=== PATIENT | male | born 2000 | race Caucasian/White ===

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

== ENCOUNTER 2021-11-03 08:48 | Emergency (ER) | payer MEDICAID, SELFPAY ==
[2021-11-03 08:51] VITALS: BP 127/82; PULSE 79; RESP 16; TEMP 37.2; O2SAT 99
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
--- NOTE | 2021-11-03 09:39 | NUR.NOTE ---
Nursing Note: Abrasion to left outer ankle dressed with bacitracin, gauze, and tegaderm per providers verbal order.
[2021-11-03] MEDS: Bacitracin 1 PACKET (09:41)
== END 2021-11-03 10:00 | disposition home or self-care (01) ==
PROVIDERS: Emergency Provider Physician Assistant; PCP Pediatrics
DX: S90.02XA Contusion of left ankle, initial encounter (principal); F17.210 Nicotine dependence, cigarettes, uncomplicated; V23.4XXA Motorcycle driver injured in collision with car, pick-up truck or van in traffic accident, initial encounter
CPT/HCPCS: 99283; 73610; 99282

== ENCOUNTER 2022-09-24 16:05 | Emergency (ER) | payer MEDICAID, SELFPAY ==
[2022-09-24] VITALS (28 sets, daily range): BP systolic 101–120; BP diastolic 55–75; PULSE 89–90; RESP 16–42; TEMP 36.6; O2SAT 79–100
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
[2022-09-24] MEDS: fentaNYL 100 MCG/2 ML VIAL 75 MCG IVP (16:47)
[2022-09-24] MEDS: ceFAZolin 2 GM/50 ML BAG IVPB (16:50)
[2022-09-24] MEDS: Normal Saline 1,000 ML 1000 ML IV (16:50)
[2022-09-24 16:51] LABS: BE (Venous) -3 mmol/L (-2-3); HCO3 (Venous) 24 mmol/L (23-28); O2 Sat (Venous) 66 %; TCO2 (Venous) 22 mmol/L (24-29); pCO2 (Venous) 49 mmHg (41-51); pO2 (Venous) 37 mmHg
[2022-09-24 16:53] LABS: HCT 41.5 % (40.0-50.0); HGB 14.9 g/dL (13.5-17.5); MCH 30.8 pg (27.0-33.0); MCHC 35.9 % (32.0-36.0); MCV 86 fL (80-95); MPV 10.4 fL (8.0-11.0); Platelet Count 272 10^3/uL (130-400); RBC 4.83 10^6/uL (4.36-5.78); RDW 11.6 % (11.8-14.1); RDW-SD 36.8 fL
[2022-09-24] MEDS: Normal Saline Flush 10 ML SYR IVP (16:53)
[2022-09-24] MEDS: Normal Saline - Diluent 50 ML VIAL IJ (16:54)
[2022-09-24 17:03] LABS: INR 1.2 (0.9-1.1); Prothrombin Time 12.5 sec (9.3-11.0)
[2022-09-24 17:15] LABS: ALT 72 U/L (16-63); AST 75 U/L (15-37); Albumin 4.3 g/dL (3.4-5.0); Alkaline Phosphatase 101 U/L (46-116); BUN 12 mg/dL (7-18); CREATININE 1.2 mg/dL (0.70-1.30); Calcium 8.6 mg/dL (8.5-10.1); Chloride 101 mmol/L (98-107); Estimated GFR 88.24 (mL/min/1.73m2); Glucose 251 mg/dL (74-106); Lipase 121 U/L (16-77); Magnesium 1.8 mg/dL (1.8-2.4); Sodium 136 mmol/L (136-145); Total Protein 6.8 g/dL (6.4-8.2)
--- NOTE | 2022-09-24 17:15 | RT.EKG_ITS ---
APPROVED REPORT Exam: Resting ECG Reason for Exam: Hypokalemia Patient Location: E HR:95 bpm ECG Measurements Heart Rate 95 AXIS ME 125 P 77 QRSd 97 QRS -74 QT 333 T 59 QTc 419 Conclusion Sinus rhythm...normal P axis, V-rate 60- 99 Probable left atrial enlargement...P >50mS, <-0.10mV V1 Left anterior fascicular block...axis(240,-40), init forces inf ST elev, probable normal early repol pattern...ST elevation, age<55 Narrow complex normal sinus rhythm at a rate of 95. Intervals within normal limits. Left axis devia tion no signs of LVH based on voltage criteria in aVL. No acute ST segment abnormalities. T wave fl attening in aVL. No prior for comparison.
[2022-09-24 17:16] LABS: Absolute Neutrophil Count 24.92 10^3/uL (1.2-6.7); Bands % 7; ETHANOL BLOOD < 3.0 mg/dL (<10); Troponin I < 50 ng/L (<or=60)
[2022-09-24 17:17] LABS: Absolute Lymphocyte Count 3.08 10^3/uL (1.2-3.4); Absolute Monocyte Count 1.85 10^3/uL (0.1-0.8); Atypical Lymphocytes % 1; Metamyelocytes % 1; Myelocytes % 2
[2022-09-24 17:18] LABS: Potassium 2.8 mmol/L (3.5-5.1)
[2022-09-24 17:19] LABS: WBC 30.77 10^3/uL (4.4-10.8)
[2022-09-24 17:20] LABS: Diff Comment Manual Differential; RBC Morphology Normal
[2022-09-24] MEDS: HYDROmorphone 2 MG/ML SYR 0.5 MG IVP (17:54)
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
[2022-09-24] MEDS: POTASSIUM CHLORIDE/0.9% NACL 1,000 ML 1000 MEQ IV (18:09)
[2022-09-24] MEDS: Ketamine 500 MG/10 ML VIAL 20 MG IVP (18:11)
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
[2022-09-24 18:56] LABS: Lactate 3.1 mmol/L (0.6-1.4)
[2022-09-24] MEDS: AMPICILLIN/SULBACTAM 3 GM in Normal Saline 100 ML IVPB (18:56)
--- NOTE | 2022-09-24 18:57 | NUR.NOTE ---
pt splinted by MD White, assisted by OSBALDO Rodgers and OSBALDO Sanchez. pt has minimal sensation in bilateral lower extremities. able to move feet but has sensory deficits.
== END 2022-09-24 19:01 | disposition short-term general hospital (02) ==
PROVIDERS: Emergency Provider Emergency Medicine; PCP Pediatrics
DX: S82.202A Unspecified fracture of shaft of left tibia, initial encounter for closed fracture; S82.402A Unspecified fracture of shaft of left fibula, initial encounter for closed fracture; S32.401A Unspecified fracture of right acetabulum, initial encounter for closed fracture; S32.10XA Unspecified fracture of sacrum, initial encounter for closed fracture; S62.300B Unspecified fracture of second metacarpal bone, right hand, initial encounter for open fracture; S62.312A Displaced fracture of base of third metacarpal bone, right hand, initial encounter for closed fracture; S52.91XB Unspecified fracture of right forearm, initial encounter for open fracture type I or II; S52.201B Unspecified fracture of shaft of right ulna, initial encounter for open fracture type I or II; E87.6 Hypokalemia; E87.21 Acute metabolic acidosis; Z87.441 Personal history of nephrotic syndrome; V29.498A Other motorcycle driver injured in collision with other motor vehicles in traffic accident, initial encounter; S32.029A Unspecified fracture of second lumbar vertebra, initial encounter for closed fracture
CPT/HCPCS: 25565; 36415; 74177; 80053; 82805; 83690; 93005; 96365; 96366; 96372; 96375; 99291; 70450; 71260; 72125; 72128; 72131; 73090; 73120; 73590; 73620; 80320; 83605; 83735; 84484; 85025; 85610; 93010; J0295; J0690; J1170; J3010

== ENCOUNTER 2022-11-10 13:02 | Outpatient (REF) | payer MEDICAID, SELFPAY | END 2022-11-10 13:03 | disposition home or self-care (01) | LOC: LBN 13:02 | PROVIDERS: PCP Pediatrics; Visit Provider Urology | DX: R30.0 Dysuria (principal) | CPT/HCPCS: 87077; 87086; 87186 ==

== ENCOUNTER 2023-08-11 12:10 | Emergency (ER) | payer MEDICAID, SELFPAY ==
[2023-08-11 12:19] VITALS: BP 138/56; PULSE 79; RESP 16; TEMP 37.1; O2SAT 99
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
== END 2023-08-11 12:45 | disposition home or self-care (01) ==
LOC: ER 12:42
PROVIDERS: Emergency Provider Emergency Medicine; PCP Pediatrics
DX: M54.50 Low back pain, unspecified (principal); F17.210 Nicotine dependence, cigarettes, uncomplicated
CPT/HCPCS: 99283

== ENCOUNTER 2023-11-12 17:45 | Emergency (ER) | payer MEDICAID, SELFPAY ==
[2023-11-12 17:52] VITALS: BP 138/91; PULSE 95; RESP 16; TEMP 36.8; O2SAT 100
--- NOTE | 2023-11-12 18:12 | ED.GENADUL_ITS ---
Discharge Plan Disposition Patient Disposition: Home Condition: Stable Discharge Details Clinical Impression: Post-op pain Primary Care Provider: Pedro Pablo Dean ED Provider: Abel Betancourt Home Meds and New Rx's Prescriptions: Continued Tylenol Extra Strength 500 mg powder in packet 500 mg PO Q6H PRN gabapentin 300 mg capsule 300 mg PO TID Patient Comments: not taking regularly, taking as needed for nerve pain. Discharge Instructions Additional Instructions: Follow-up with your surgeons office tomorrow Return to the emergency department if you feel more ill or feel like you are suffering from an emergent medical process. HPI General Mode of arrival: ambulatory . Date/Time Provider Initiated Documentation: 11/12/23 17:48 . Limitations to Documentation: no limitations . Information obtained by: patient and family . History of Present Illness 23 year old M presents to the emergency department with the chief complaint of Postop pain, described as moderate, Quality is described as aching, and is localized to the back. Patient reports no radiation. Patient started ex periencing this day(s) (2) and it has been constant. No relieving factors improve symptom(s), No exacerbating factors reported . Patient notes no other symptoms.; denies fever/chills. Patient did receive the following treatments prior to arrival, none Related Data Home Medications ?Medication ?Instructions ?Recorded ?Confirmed acetaminophen 500 mg oral powder 500 mg PO Q6H PRN 11/01/22 11/12/23 packet (Tylenol Extra Strength) gabapentin 300 mg capsule 300 mg PO TID 11/01/22 11/12/23 Allergies Allergy/AdvReac Type Severity Reaction Status Date / Time No Known Allergies Allergy Verified 11/12/23 17:50 General Stated Complaint: Nk/Back Pain JAZIEL: 3 Review of Systems All systems reviewed & are unremarkable except as noted in HPI and below Constitutional Constitutional: Denies chills, Denies fever(s) and Denies weakness Cardiovascular Cardiovascular: Denies chest pain and Denies dyspnea Respiratory Respiratory: Denies cough and Denies dyspnea Gastrointestinal Gastrointestinal: Denies abdominal pain, Denies nausea and Denies vomiting Musculoskeletal Musculoskeletal: Denies joint swelling Neurologic Neurologic: Denies weakness Exam Const General: no acute distress Orientation: alert HENMT Head: normal to inspection Ears: external ears normal General nose exam: external nose normal Mouth: moist mucous membranes Eyes General: appearance normal, both eyes and all related structures Neck Neck: normal visual inspection Resp Effort & Inspection: normal respiratory effort and able to speak in complete sentences Cardio Rate: regular rate GI Palpation: soft and nontender Back/Spine/Pelvis Back: no CVA tenderness and No erythema Skin General skin exam: no rashes or lesions noted Neuro General: patient alert and patient oriented x3 Extrem General: normal to inspection Psych Mental Status: mental status grossly normal Course Vital Signs Vital signs: Vital Signs Temperature 36.8 C 11/12/23 17:52 Pulse 95 H 11/12/23 17:52 Respiratory Rate 16 11/12/23 17:52 Blood Pressure 138/91 H 11/12/23 17:52 Pulse Oximetry 100 11/12/23 17:52 Temperature 36.8 C 11/12/23 17:52 Temperature Source Temporal Artery Scan 11/12/23 17:52 Pulse 95 H 11/12/23 17:52 Respiratory Rate 16 11/12/23 17:52 Respiratory Effort Normal, Non-Labored 11/12/23 17:56 Blood Pressure 138/91 H 11/12/23 17:52 Blood Pressure Position Sitting 11/12/23 17:52 Pulse Oximetry 100 11/12/23 17:52 Oxygen Delivery Method Room Air 11/12/23 17:52 Oxygen Flow Rate 0 11/12/23 17:52 Pain Level 10 11/12/23 17:52 Medical Decision Making 23-year-old male who had hardware placed in his lumbar spine last year and removed 2 days ago at [facility], did not want stay overnight in the hospital and left without any prescription pain meds comes in with continued lower back pain. He called his neurosurgical office who advised him to come here until he can talk to him on the phone tomorrow. He has been taking Tylenol but no ibuprofen as they told him he should not be taking ibuprofen. He denies any fevers, chills, discharge from the surgical sites. Pain is on the lower lumbar region where he had his pain. Is no erythema or drainage, he has no saddle anesthesia and intact distal sensation and pulses. Suspect this is all postop pain he has no findings on exam to suggest cauda equina no fever so I doubt spinal epidural abscess. Discussed risk of opiates including addiction and he has been on opiates in the past without any issues and would like to have some. Will provide him a bottle of for oxycodone to take at home. He will follow-up with his neurosurgical provider and return precautions given Differential Diagnosis Differential Diagnosis: Muscle spasm, postop pain Quality:SDOH Health Related Social Needs: No Data to Display PFSH All Active Problems (Updated 11/12/23 @ 18:15 by Abel Betancourt MD) Post-op pain (Acute) Urinary retention (Acute) Traumatic burst fracture of lumbar vertebra (Acute) Fracture of left tibia and fibula (Acute) Acetabulum fracture, right (Acute) Sacral fracture, closed (Acute) Open fracture of second metacarpal bone of right hand (Acute) Fracture of base of third metacarpal bone of right hand (Acute) Open fracture of right radius and ulna (Acute) Jaundice (Acute) with scleral icterus- labs all wnl except slight high bilirubin- Probable Gilbert syndrome 01/07 Routine child health exam (Acute 11/07/11) Pes planus of both feet (Acute 10/21/15) No pain Medical History (Updated 11/12/23 @ 18:15 by Abel Betancourt MD) Pes planus Tonsillar and adenoid hypertrophy Serous otitis media Surgical History (Updated 11/06/22 @ 14:55 by Petr Gaona MD) Hx of decompressive lumbar laminectomy H/O exploratory laparotomy Tonsillectomy and adenoidectomy Myringotomy w/ PE (pressure equalizing) tubes times 2 Circumcision Family History Father Hearing deficit Sister Hearing deficit granparent Essential hypertension Heart disease Mental disorder depression/anxiety Mother Healthy adult on routine physical examination Social History Smoking/Tobacco Use Status: Current-Occasional Tobacco Type: cigarettes Smoking risk assessment performed?: Yes Alcohol Intake: current Alcohol Intake frequency: holidays/special occasions only Alcohol type: beer Drug use: Occasionally Substance use type: marijuana Housing: house Do you feel safe at home: Yes Do you feel safe in your relationship?: Yes
== END 2023-11-12 18:23 | disposition home or self-care (01) ==
LOC: ER 18:23
PROVIDERS: Emergency Provider Emergency Medicine; PCP Pediatrics
DX: M54.50 Low back pain, unspecified (principal); G89.18 Other acute postprocedural pain; F17.210 Nicotine dependence, cigarettes, uncomplicated
CPT/HCPCS: 99283

== ENCOUNTER 2024-06-04 14:53 | Emergency (ER) | payer MEDICAID, SELFPAY ==
[2024-06-04 15:09] VITALS: BP 122/70; PULSE 108; RESP 14; TEMP 37.4; O2SAT 99
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
[2024-06-04] MEDS: Ondansetron 4 MG/2 ML VIAL IVP (15:59)
[2024-06-04 16:02] VITALS: BP 104/64; PULSE 84; RESP 16; O2SAT 98
[2024-06-04 16:19] LABS: Abs Immature Grans 0.02 10^3/uL (0.0-0.06); Absolute Basophil Count 0.03 10^3/uL (0.0-0.2); Absolute Eosinophil Count 0.03 10^3/uL (0.0-0.7); Absolute Lymphocyte Count 1.03 10^3/uL (1.2-3.4); Absolute Monocyte Count 0.63 10^3/uL (0.1-0.8); Absolute Neutrophil Count 7.77 10^3/uL (1.2-6.7); Basophils % 0.3 %; Eosinophils % 0.3 %; HCT 47.4 % (40.0-50.0); HGB 17.3 g/dL (13.5-17.5); Immature Grans % 0.2 %; Lymphocytes % 10.8 %; MCH 30.5 pg (27.0-33.0); MCHC 36.5 % (32.0-36.0); MCV 84 fL (80-95); Monocytes % 6.6 %; Neutrophils % 81.8 %; Platelet Count 232 10^3/uL (130-400); RBC 5.67 10^6/uL (4.36-5.78); RDW 12.2 % (11.8-14.1); RDW-SD 36.7 fL; WBC 9.51 10^3/uL (4.4-10.8)
[2024-06-04 16:38] LABS: ALT 21 U/L (16-63); AST 11 U/L (15-37); Albumin 4.7 g/dL (3.4-5.0); Alkaline Phosphatase 87 U/L (46-116); Anion Gap 6.1 mmol/L (3-11); BUN 13 mg/dL (7-18); Bilirubin, Total 3.62 mg/dL (0.2-1.0); CO2 30.9 mmol/L (21.0-32.0); CREATININE 0.8 mg/dL (0.70-1.30); Calcium 9.5 mg/dL (8.5-10.1); Chloride 104 mmol/L (98-107); Estimated GFR 128.33 (mL/min/1.73m2); Glucose 111 mg/dL (74-106); Lipase 28 U/L (<78); Magnesium 1.9 mg/dL (1.8-2.4); Potassium 4.6 mmol/L (3.5-5.1); Sodium 141 mmol/L (136-145); Total Protein 7.7 g/dL (6.4-8.2)
[2024-06-04 16:39] LABS: Bilirubin Negative (Negative); Blood Negative (Negative); Clarity Clear (Clear); Glucose Negative (Negative); Ketones 80 mg/dL (Negative); Leukocyte Esterase Large (Negative); Nitrite Positive (Negative); Specific Gravity 1.015 (1.005-1.025); pH 8.5 (5-8)
[2024-06-04 16:46] LABS: Bacteria Rare HPF (Negative); C & S Indicated? Yes; Casts Negative LPF (Negative); Crystals Negative HPF (Negative); Epithelial Cells Negative HPF (Negative); Mucus Negative (Negative); Other Cells Negative (Negative); RBC Negative HPF (0-2)
[2024-06-04] MEDS: Cephalexin 500 MG CAP, 4 CAPS/BTL PO (17:03)
[2024-06-04] MEDS: Ondansetron O.D.T. 4 MG TABEF, 3 TABS/BTL PO (17:04)
[2024-06-04 17:05] VITALS: BP 102/66; PULSE 89; RESP 16
== END 2024-06-04 17:27 | disposition home or self-care (01) ==
PROVIDERS: Emergency Provider Emergency Medicine; PCP Pediatrics
DX: N39.0 Urinary tract infection, site not specified (principal); R82.2 Biliuria; R11.0 Nausea
CPT/HCPCS: 36415; 80053; 83690; 96374; 99284; 81003; 81015; 83735; 85025; 87086; J2405

== ENCOUNTER 2024-09-23 19:11 | Emergency (ER) | payer MEDICAID, SELFPAY ==
[2024-09-23 19:13] VITALS: BP 124/78; PULSE 94; RESP 19; TEMP 36.7; O2SAT 97
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
[2024-09-23 19:44] LABS: Clarity Cloudy (Clear)
--- NOTE | 2024-09-23 19:50 | DI.CT_ITS ---
Exam(s) CT ABDOMEN PELVIS WO EXAM: CT ABDOMEN PELVIS WO CLINICAL HISTORY: Hematuria. TECHNIQUE: Imaging Protocol: Axial computed tomography images with coronal and sagittal reformatted images were created and reviewed. COMPARISON: CT CT CHEST/ABD/PEL W from 09/24/2022 FINDINGS: There is artifact from the patient's posterior spinal rods. ABDOMEN: Lung Bases: No acute pulmonary process. Liver: Normal density. No measurable mass. Gallbladder and biliary tract: Gallstones are present. There is no significant biliary ductal dilata tion. Pancreas: Normal density, no abnormal calcifications or inflammatory process. Spleen: Normal. Kidneys: Normal size, contour and axis.No radiodense stones or obstructive uropathy. No masses seen. Adrenal glands: No mass is seen. Lymph nodes: Within normal limits. Abdominal Aorta: Abdominal portion non-dilated. PELVIS: Bladder:The urinary bladder is incompletely distended. There is apparent thickening of the wall of t he urinary bladder which may be due to the underdistention. There is a round density within the urin pascale bladder which is partially calcified. It measures 3.2 cm. Bowel: No obstruction or bowel wall thickening. No evidence of appendicitis. Peritoneal cavity: No ascites, collection or mesenteric inflammatory response. No free air. Reproductive organs: Unremarkable as visualized. Bones: Posterior spinal rods are seen extending from at least T11 through L3. Pedicle screws are see n in T11, T12, L1 and L3. There are old compression fracture deformities seen at L2 and within the sa osmany. Old healed right pelvic bone fractures. No acute fractures present. Soft Tissues: Within normal limits. IMPRESSION: 1. No evidence of nephrolithiasis or hydronephrosis. 2. Cholelithiasis. No biliary ductal dilatation. 3. Bladder wall thickening which may be due to underdistention cystitis cannot be excluded. Please c orrelate clinically. 4. 3.2 cm density in the urinary bladder. This may represent a bladder stone. Foreign body should a lso be considered. Please correlate the patient's clinical and surgical history. 5. The preliminary [facility] report was reviewed. RADIATION DOSE DELIVERED: 261.77mGy.cm Total DLP DATA REPOSITORY: All CT scans at this facility are submitted to the National Radiology Data Registry (NRDR) Dose Index Registry (DIR) with the [employer] (A[employer]). RADIATION OPTIMIZATION: All CT scans at this facility use at least one of these dose optimization te chniques: automated exposure control; mA and/or kV adjustment per patient size (includes targeted exa ms where dose is matched to clinical indication); or iterative reconstruction.
[2024-09-23 20:02] LABS: RBC >50 HPF (0-2)
[2024-09-23 20:03] LABS: C & S Indicated? No
--- NOTE | 2024-09-23 21:32 | DI.[facility]_ITS ---
PROCEDURE INFORMATION: Exam: CT Abdomen And Pelvis Without Contrast Exam date and time: 09/23/2024 7:40 PM Age: 24 years old Clinical indication: Hematuria; Prior surgery; Surgery date: 6+ months; Surgery type: Spine rods TECHNIQUE: Imaging protocol: Computed tomography of the abdomen and pelvis without contrast. Radiation optimization: All CT scans at this facility use at least one of these dose optimization techniques: automated exposure control; mA and/or kV adjustment per patient size (includes targeted exams where dose is matched to clinical indication); or iterative reconstruction. COMPARISON: CT CHEST/ABD/PEL W 09/24/2022 5:19 PM FINDINGS: Limitations: The lack of intravenous contrast limits evaluation of the solid organs. Liver: Unremarkable liver. No mass identified. Gallbladder and biliary ducts: Calcifications noted in the region of the gallbladder may represent layering gallstones. No ductal dilation. Pancreas: No pancreatic lesion seen. Spleen: The spleen is unremarkable. No splenomegaly. Adrenal glands: The adrenal glands are unremarkable. No defined mass. Kidneys and ureters: The kidneys are unremarkable. No hydronephrosis. Stomach and bowel: No evidence of bowel obstruction or acute bowel inflammation. Appendix: No evidence of appendicitis. Intraperitoneal space: No free air. No significant fluid collection. Vasculature: No abdominal aortic aneurysm. Lymph nodes: No significant lymphadenopathy. Urinary bladder: A round hyperdense object is noted within the urinary bladder measuring up to 2.7 cm in diameter, this could represent a developed calculus or a residual foreign body in this region. Thickened urinary bladder prado noted, which could be secondary to underdistention or chronic inflammation. Reproductive: Unremarkable as visualized. Bones/joints: The patient is status post posterior spinal fusion at the thoracolumbar level secondary to fracture. Multiple old sacral and pelvic fractures noted. Soft tissues: No significant subcutaneous soft tissue abnormality. IMPRESSION: 1. Round hyperdensity within the urinary bladder which may represent calcification or residual foreign body. Correlate with clinical history. An ultrasound may be considered for further evaluation. 2. Thickened bladder prado noted, which may be secondary to underdistention or chronic inflammation. Dictated and Authenticated by: Viktoria Smith MD. Orderin Fabiola Amaro MD
[2024-09-23 21:53] VITALS: BP 111/65; PULSE 69; RESP 18; TEMP 36.6; O2SAT 100
== END 2024-09-23 21:53 | disposition home or self-care (01) ==
PROVIDERS: Emergency Provider Registered Nurse Emergency; PCP Pediatrics
DX: N21.0 Calculus in bladder (principal); R31.9 Hematuria, unspecified; R11.0 Nausea
CPT/HCPCS: 99283; 99284; 74176; 81003; 81015

== ENCOUNTER 2024-09-24 15:24 | Outpatient (REF) | payer MEDICAID, SELFPAY | END 2024-09-24 15:25 | disposition home or self-care (01) | LOC: LBN 15:24 | PROVIDERS: PCP Pediatrics; Visit Provider Urology | DX: N21.0 Calculus in bladder (principal) | CPT/HCPCS: 87086 ==

== ENCOUNTER 2024-10-08 08:58 | Observation (INO) | payer MEDICAID, SELFPAY ==
[2024-10-08] VITALS (34 sets, daily range): BP systolic 108–138; BP diastolic 59–109; PULSE 60–99; RESP 12–27; TEMP 35.9–37.2; O2SAT 97–100; BMI 16.5
--- NOTE | 2024-10-08 09:16 | W.PM.HP.N ---
Date of service: 10/08/24 Time of Service: 09:16 Assessment and Plan Assessment and plan (1) Bladder calculi: Status: Acute Assessment and plan: For cystoscopy with holmium laser lithotripsy of his bladder stone. Depending on the progression of the surgery, we may keep him in the hospital for continuous bladder irrigation overnight. If CBI is not needed, no admission is expected. History of Present Illness History of Present Illness Chief Complaint: Bladder stone Narrative: This is a 24-year-old gentleman who has a history of a neurogenic bladder related to a traumatic injury. Initially, he had an indwelling Castillo catheter. He failed multiple voiding trials while he was hospitalized and in rehab facilities. Once he was discharged and able to become more active, he was successfully able to get his catheter removed. He has not had a catheter in over 18 months now. He uses timed voiding and feels that he empties his bladder reasonably well. He has had a few episodes of urinary tract infection that required antibiotics. He was seen in the emergency department yesterday and a CT scan was done. A stone was visualized within the bladder. He presents for holmium laser lithotripsy of his stone. We are prepared to admit him for bladder irrigation overnight if needed. He has no prior history of stone disease. He has no known history of gout or hyperparathyroidism Review of Systems Narrative: No fevers or chills No vision change or dysphasia No diabetes or thyroid dysfunction No shortness of breath, cough or hemoptysis No chest pain or palpitations No nausea, vomiting, hepatitis, ulcers No seizures, strokes No bleeding disorders or anemia Multiple pelvic fractures, extremity fx and lumar spine fracture. No gout PFSH All Active Problems Hematuria (Acute) Bladder calculi (Acute) Urinary retention (Acute) Traumatic burst fracture of lumbar vertebra (Acute) Fracture of left tibia and fibula (Acute) Acetabulum fracture, right (Acute) Sacral fracture, closed (Acute) Open fracture of second metacarpal bone of right hand (Acute) Fracture of base of third metacarpal bone of right hand (Acute) Open fracture of right radius and ulna (Acute) Jaundice (Acute) with scleral icterus- labs all wnl except slight high bilirubin- Probable Gilbert syndrome 01/07 Routine child health exam (Acute 07/18/12) Pes planus of both feet (Acute 10/21/15) No pain Medical History Constipation Pes planus Tonsillar and adenoid hypertrophy Serous otitis media Surgical History Hx of decompressive lumbar laminectomy H/O exploratory laparotomy Tonsillectomy and adenoidectomy Myringotomy w/ PE (pressure equalizing) tubes times 2 Circumcision Family History Father Hearing deficit Sister Hearing deficit granparent Essential hypertension Heart disease Mental disorder depression/anxiety Mother Healthy adult on routine physical examination Social History Smoking/Tobacco Use Status: Current every day Tobacco Type: e-cigarettes Smoking risk assessment performed?: Yes Alcohol Intake: current Alcohol Intake frequency: holidays/special occasions only Alcohol type: beer Drug use: Daily Substance use type: marijuana Housing: house Do you feel safe at home: Yes Do you feel safe in your relationship?: Yes Meds Allergies and Home Medications Allergies Allergy/AdvReac Type Severity Reaction Status Date / Time No Known Allergies Allergy Verified 10/08/24 09:09 Home Medications ?Medication ?Instructions ?Recorded ?Confirmed ?Type acetaminophen 500 mg oral powder 500 mg PO Q6H PRN 11/01/22 09/25/24 History packet (Tylenol Extra Strength) gabapentin 300 mg capsule 300 mg PO TID PRN 11/01/22 09/25/24 History ondansetron 4 mg disintegrating 4 mg PO Q8H PRN nausea and 08/04/24 09/25/24 Rx tablet vomiting #8 tabs Exam Const General: cooperative Neck Neck: supple Resp Effort & Inspection: normal respiratory effort Auscultation: clear to auscultation bilaterally Cardio Rate: regular rate Rhythm: regular rhythm GI Palpation: soft and no masses Neuro General: patient alert, patient awake and patient oriented x3 Results Last Vital Signs Temp 36.6 C 10/08/24 09:04 Time Spent Time spent with Patient: <40 minutes Time was spent: other
[2024-10-08] MEDS: Lactated Ringers 1,000 ML 80 ML IV (09:19)
--- NOTE | 2024-10-08 09:55 | W.ANESPRE ---
General Info Date of Service Date Performed: 10/08/24 Height: 5 ft 11 in Weight: 53.8 kg Body Mass Index (BMI): 16.5 Surgical Procedure: Operation Date: 10/08/24 09:55 Proposed Procedure Side Surgeon p Cystoscopy/Holium Laser Lithotripsy Petr Gaona MD Actual Procedure Side Surgeon p Cystoscopy/Holium Laser Lithotripsy Petr Gaona MD Pre-Op Diagnosis Post-Op Diagnosis Bladder calculi Meds Allergies and Home Medications Allergies Allergy/AdvReac Type Severity Reaction Status Date / Time No Known Allergies Allergy Verified 10/08/24 09:09 Home Medication ?Medication ?Instructions ?Recorded acetaminophen 500 mg oral powder 500 mg PO Q6H PRN 11/01/22 packet (Tylenol Extra Strength) gabapentin 300 mg capsule 300 mg PO TID PRN 11/01/22 ondansetron 4 mg disintegrating 4 mg PO Q8H PRN nausea and 08/04/24 tablet vomiting #8 tabs Current Visit Medications: Current Medications Generic Name Dose Route Start Last Admin Trade Name Freq PRN Reason Stop Dose Admin Ringer's Solution 1,000 mls @ 80 mls/hr 10/08/24 06:00 10/08/24 09:19 IV 10/08/24 23:59 80 mls/hr INFUSION SARA Administration Cefazolin Sodium/Dextrose 2 gm in 50 mls @ 100 mls/hr 10/08/24 06:00 Ancef Duplex IVPB 10/08/24 23:59 PREOP SARA IV Miscellaneous Supplies 1 each 10/08/24 06:00 Iv Access IV 10/08/24 23:59 DIRECTED SARA Sodium Chloride 0 ml 10/08/24 06:00 Normal Saline Flush 10 Ml Syr IV 10/08/24 23:59 PRN PRN Sodium Chloride 0 ml 10/08/24 06:00 Normal Saline 10 Ml Vial IJ 10/08/24 23:59 DIRECTED PRN Sterile Water 0 ml 10/08/24 06:00 Water,Injection,Sterile 10 Ml Vial IJ 10/08/24 23:59 DIRECTED PRN PFSH Active Problems Active Problems: Problem Status Onset Code Hematuria Acute R31.9 Bladder calculi Acute N21.0 Urinary retention Acute R33.9 Traumatic burst fracture of lumbar vertebra Acute S32.001A Fracture of left tibia and fibula Acute S82.202A, S82.402A Acetabulum fracture, right Acute S32.401A Sacral fracture, closed Acute S32.10XA Open fracture of second metacarpal bone of right hand Acute S62.300B Fracture of base of third metacarpal bone of right hand Acute S62.312A Open fracture of right radius and ulna Acute S52.91XB, S52.201B Jaundice Acute R17 Routine child health exam Acute 11/07/11 Z00.129 Pes planus of both feet Acute 10/21/15 M21.41, M21.42 Medical History Medical History Constipation Pes planus Tonsillar and adenoid hypertrophy Serous otitis media Surgical History Surgical History Hx of decompressive lumbar laminectomy H/O exploratory laparotomy Tonsillectomy and adenoidectomy Myringotomy w/ PE (pressure equalizing) tubes times 2 Circumcision Tobacco Smoking/Tobacco Use Status: Current every day Tobacco Type: e-cigarettes Passive smoking exposure: Yes Alcohol Alcohol Intake: current Alcohol intake frequency: holidays/special occasions only Alcohol type: beer Substance Use Substance use: Daily Substance use type: marijuana (joints) Vital Signs and Lab Results Vital Signs Most Recent Vital Signs in EMR: Most Recent Vital Signs Temp Pulse Resp BP Pulse Ox 36.6 C 68 16 110/70 98 10/08/24 09:04 10/08/24 09:04 10/08/24 09:04 10/08/24 09:04 10/08/24 09:04 Imaging and Studies Imaging and Studies Study information below may be from another EMR and interpreted by another provider. Please see original notes in EMR for more complete details. EKG Summary: EKG PATIENT NAME: Pablo Yost UNIT #: [id number] ORDERING PROVIDER: Ap Morgan M.D. PRIMARY CARE PROVIDER: REJI DODSON MD DATE/TIME OF SERVICE: 09/24/221800 : 2000 PERFORMING LOCATION: ER APPROVED REPORT Exam: Resting ECG Reason for Exam: Hypokalemia Patient Location: E HR:95 bpm ECG Measurements Heart Rate 95 AXIS ND 125 P 77 QRSd 97 QRS -74 QT 333 T59 QTc 419 Conclusion Sinus rhythm...normal P axis, V-rate 60- 99 Probable left atrial enlargement...P >50mS, <-0.10mV V1 Left anterior fascicular block...axis(240,-40), init forces inf ST elev, probable normal early repol pattern...ST elevation, age<55 Narrow complex normal sinus rhythm at a rate of 95. Intervals within normal limits. Left axis deviation no signs of LVH based on voltage criteria in aVL. No acute ST segment abnormalities. T wave flattening in aVL. No prior for comparison. Anesthesia Assessment and Plan Anesthesia History Personal History: No History of Anesthesia Complications Family History: No Family History of Anesthesia Complications Exercise Tolerance Exercise Tolerance: Metabolic Equivalents>4 Pertinent Negatives Pertinent Negatives: No Symptoms of GERD, No Major Cardiovascular Symptoms or Complaints, No Major Pulmonary Symptoms or Complaints and No History of CVA/TIA Cardiac & Pulmonary Exam Cardiac Exam: Normal S1/S2 Heart Sounds Pulmonary Exam: Clear Bilateral Breath Sounds Implantable Cardiac Device Does patient have a Pacemaker or an ICD?: No Airway Exam Known Difficult Airway: No Mallampati Class: 2 Mouth Opening: Normal (> 3cm) Thyromental Distance: Greater than 3 cm Neck Range of Motion: Full ROM Neck Circumference: Normal Teeth Condition: Generalized Poor Dentition and Loose or Chipped Tooth Numbering:  1. chipped ASA Classification ASA Score: ASA 2 Emergency Case?: No NPO Status NPO Status: NPO Clears >2 hours, Solids >8 hours Anesthesia Plan Resuscitation Status: Full Code Anesthesia Technique: General Anesthesia Airway Planned: LMA Monitors Used: Standard Monitors
[2024-10-08] MEDS: ceFAZolin 2 GM/50 ML BAG IVPB (10:14)
[2024-10-08] MEDS: Lidocaine 2% Jelly 11 ML SYR (10:22)
--- NOTE | 2024-10-08 14:19 | ROE_ITS ---
Operative Note Operative Note PRE-OP DIAGNOSIS: Bladder stone POST-OP DIAGNOSIS: same PROCEDURE: cystoscopy, holmium laser lithotripsy of large bladder stone, extraction of stone fragments SURGEON: Petr Gaona ANESTHESIA TYPE: Local By Surgeon and General LMA/ETT Refer to Anesthesia Record ESTIMATED BLOOD LOSS: 100 PATHOLOGY: other (stone for chemical analysis) Patient was transported to: PACU Patient's condition: stable Implants: 20 Luxembourger coude tipped irrigating catheter with 30 cc sterile water in balloon Indications: This is a 24-year-old gentleman who has a history of a bar spine injury. Immediately after the injury, he was unable to void. He had an indwelling Pimentel catheter that was changed intermittently. Ultimately, he was able to void on his own and has been catheter free for over a year now. Recently, after riding on [employer], he developed gross hematuria. He was seen in the emergency department and evaluated with a CT scan. A large bladder stone was seen. He presents now for cystoscopy with holmium laser lithotripsy and extraction of his stone Findings: large bladder stone with shape consistent with cast from end of pimentel catheter Procedure Description: The patient was given IV antibiotics based on preoperative urine cultures. He was brought to the operating room on 10/08/2024. After successful induction of general anesthesia, he was placed in the dorsal lithotomy position. His genitalia was prepped and draped. 2% Xylocaine jelly was instilled into the urethra. A 22 Luxembourger rigid cystoscope was passed through the urethra into the bladder. Urethra and bladder were inspected using a 30 degree lens. The pendulous, bulbar and membranous urethra appeared normal with no strictures. The prostatic urethra showed no significant lateral lobe enlargement. The bladder neck was entered and the bladder mucosa was inspected. There was a large bladder stone (3 to 5 cm in largest dimension) that had a central defect and had a shape consistent with a cast from a previous Pimentel catheter. The exterior of the stone had a pebble appearance and was much more irregular then at the central aspect of the stone. We utilized 752 ?m holmium laser fiber to fragment the stone in multiple pieces. The stone fragments were extracted using a combination of hand irrigation along with grasping the stones and alligator forceps and removing them manually. All extracted the stones were evacuated and sent to pathology for chemical analysis. At the completion of the procedure, no significant stone burden was identified, but visibility was a bit decreased due to clot within the bladder. I then filled the bladder with irrigant and passed a guidewire through the lumen of the cystoscope. The cystoscope was removed leaving the wire in place. A 20 Luxembourger hematuria catheter was passed over the wire, through the urethra and into the bladder. The catheter balloon was inflated with 30 cc of sterile water. Continuous bladder irrigation with saline was then begun. The patient tolerated this procedure well with no complications. He was taken to the recovery room. Plans will be made for an overnight hospitalization for continuous bladder irrigation. Date of Procedure: 10/08/24
--- NOTE | 2024-10-08 15:37 | W.ANESPOSTOP ---
Postoperative Evaluation Date, Time and Location Date Performed: 10/08/24 Time Performed: 15:38 Patient Location: PACU Vital Signs Most Recent Imported Vital Signs: Most Recent Vital Signs Temp Pulse Resp BP Pulse Ox 36.8 C 67 15 131/66 100 10/08/24 15:30 10/08/24 15:30 10/08/24 15:30 10/08/24 15:30 10/08/24 15:30 Pain Score Most Recent Pain Score: Most Recent Pain Score Pain Level 0 10/08/24 15:30 Assessment Mental Status: Awake (Alert & Oriented to Patient Baseline) Airway and Respiratory Function: Patent airway with normal (patient baseline) respiratory exam Cardiovascular Function: Hemodynamically Stable Hydration Status: Adequately Hydrated Nausea & Vomiting: No Nausea or Vomiting Pain: Pt. Denies Any Pain Peripheral Nerve Block: Patient did not receive a nerve block
[2024-10-08] MEDS: ceFAZolin 1 GM/50 ML BAG IVPB ×2 (16:48→22:20)
[2024-10-09 00:41] VITALS: BP 134/90; PULSE 100; RESP 16; TEMP 36.6; O2SAT 98
[2024-10-09] MEDS: ceFAZolin 1 GM/50 ML BAG IVPB (03:47)
[2024-10-09] MEDS: Normal Saline Flush 10 ML SYR IV (03:48)
[2024-10-09 07:06] VITALS: BP 106/61; PULSE 61; RESP 17; TEMP 37; O2SAT 98
--- NOTE | 2024-10-09 07:39 | W.PM.DS.N ---
Date of service: 10/09/24 Time of Service: 07:39 DS: Diagnosis Discharge Diagnosis (1) Bladder calculi: Status: Acute Discharge Plan Disposition Patient Disposition: Home Condition: Stable Discharge Details Reason For Visit: Bladder Stone Admit Date/Time: 10/08/24 08:58 Admit Provider: Petr Gaona Attending Provider: Petr Gaona Primary Care Provider: Pedro Pablo Dean Hospital Course Hospital Course: The patient was admitted and taken to the operating room on 10/08/2024 where he underwent cystoscopy. We identified a large bladder stone and fragmented the stone using a holmium laser. We extracted multiple stone fragments and sent them all off to the laboratory for chemical analysis. Following the procedure, we left an irrigating catheter in place. We ran continuous bladder irrigation for 24 hours. He did have some bleeding around the catheter related to urethral trauma from the surgery but very little sediment within the irrigant. By postoperative day #1, he was comfortable. He was afebrile. He had received 24 hours worth of IV antibiotics. He is being discharged to home with his catheter in place. Home Meds and New Rx's Prescriptions: No Action Tylenol Extra Strength 500 mg powder in packet 500 mg PO Q6H PRN gabapentin 300 mg capsule 300 mg PO TID PRN Patient Comments: not taking regularly, taking as needed for nerve pain. ondansetron 4 mg tablet,disintegrating 4 mg PO Q8H PRN (Reason: nausea and vomiting) Qty: 8 0RF Discharge Instructions Additional Instructions: Catheter plug to the irrigation port of his urethral catheter Drainage port of the catheter to either leg bag or large drainage bag My office will contact the patient to make arrangements for an outpatient surgical procedure during which we will remove his catheter and perform cystoscopy to make sure no remaining stone fragments are present. Because of the trauma to the urethra tube, I would expect there to be some bleeding around the catheter (much more than through the catheter) Activity:: Activity as Tolerated Equipment/Supplies:: Castillo catheter to drainag Diet:: As Tolerated Discharge Orders Discharge Orders: Discharge Order (Routine); Ordered 10/09/24 Ordered By: Petr Gaona DS: Summary Time Spent with Patient providing and/or coordinating discharge services: Less than 30 minutes Status at Discharge Functional status at discharge: independent ambulation Overall status at discharge: patient is back to baseline Mental Status: mental status grossly normal Speech and Movement: speech and movement normal Mood: congruent mood Affect: normal affect Exam Narrative Exam Narrative: On the morning of discharge, he looks well His vital signs are documented elsewhere His chest wall motion is normal. He is not short of breath at rest. His abdomen is soft with no guarding or rebound tenderness His his Castillo catheter is draining clear fluid with bladder irrigation He is awake and alert Psych Mental Status: mental status grossly normal Speech and Movement: speech and movement normal Mood: congruent mood Affect: normal affect DS: Data Vitals/I&O Vitals and I&O: Vital Signs Temperature 37.0 C 10/09/24 07:06 Temperature Source Temporal Artery Scan 10/09/24 07:06 Pulse 61 10/09/24 07:06 Pulse Rhythm Regular 10/08/24 15:47 Pulse 86 10/08/24 15:25 Respiratory Rate 17 10/09/24 07:06 Respiratory Effort Normal 10/08/24 15:47 Respiratory Depth Normal 10/08/24 15:47 Respiratory Pattern Normal 10/08/24 15:47 Blood Pressure 106/61 10/09/24 07:06 Blood Pressure Mean 76 10/09/24 07:06 Pulse Oximetry 98 10/09/24 07:06 Respiratory End-tidal CO2 33 10/08/24 15:30 Oxygen Delivery Method Room Air 10/09/24 07:06 Oxygen Flow Rate 0 10/09/24 07:06 Pain Level 0 10/09/24 07:06 Intake & Output 10/08/24 10/08/24 10/09/24 11:59 23:59 11:59 Intake Total 0 / 1182.539 0719.667 / 1076.667 Output Total 6100 / 6100 Balance 0 / -5023.333 -5023.333 / -5023.333 Weight 53.8 kg 53 kg Intake: IV 0 / 0154.211 4806.667 / 1076.667 Output: Urine 6000 / 6000 Estimated Blood Loss 100 / 100 Other: Urine Color [place] Pale Urine Appearance Clear Clear Sediment Comment secured with leg strap Clear fluid draining, scant amount of sediment. no clots noted Emesis Description None Data Completed and Pending Labs on day of discharge: Labs from last 24 hours 10/08/24 12:07 Stone Source Pending Stone Comment Pending Kidney Stone Analysis Pending [facility] All Active Problems Hematuria (Acute) Bladder calculi (Acute) Urinary retention (Acute) Traumatic burst fracture of lumbar vertebra (Acute) Fracture of left tibia and fibula (Acute) Acetabulum fracture, right (Acute) Sacral fracture, closed (Acute) Open fracture of second metacarpal bone of right hand (Acute) Fracture of base of third metacarpal bone of right hand (Acute) Open fracture of right radius and ulna (Acute) Jaundice (Acute) with scleral icterus- labs all wnl except slight high bilirubin- Probable Gilbert syndrome 01/07 Routine child health exam (Acute 11/07/11) Pes planus of both feet (Acute 10/21/15) No pain Medical History Constipation Pes planus Tonsillar and adenoid hypertrophy Serous otitis media Surgical History Hx of decompressive lumbar laminectomy H/O exploratory laparotomy Tonsillectomy and adenoidectomy Myringotomy w/ PE (pressure equalizing) tubes times 2 Circumcision Family History Father Hearing deficit Sister Hearing deficit granparent Essential hypertension Heart disease Mental disorder depression/anxiety Mother Healthy adult on routine physical examination Social History Smoking/Tobacco Use Status: Current every day Tobacco Type: e-cigarettes Smoking risk assessment performed?: Yes Alcohol Intake: current Alcohol Intake frequency: holidays/special occasions only Alcohol type: beer Drug use: Daily Substance use type: marijuana (joints) Housing: house Do you feel safe at home: Yes Do you feel safe in your relationship?: Yes Time Spent with Patient Time Spent with Patient: <45 minutes Time was spent: preparing to see the patient(eg.review tests), obtaining and/or reviewing separately otained hiistory, referring, communicating with other health wound care center consultant, counseling the patient and care coordination
--- NOTE | 2024-10-09 07:49 | W.PM.PROGNOT ---
Date of Service Date of service: 10/09/24 Time of Service: 07:49 Assessment and Plan Assessment and plan (1) Bladder calculi: Status: Acute Assessment and plan: I do like to leave his catheter for minimum of 5 days to allow his urethra to heal from yesterday's procedure. I am proposing that we bring him back to the operating room next week for a much shorter procedure. We would be able to remove his catheter and perform cystoscopy to ensure all stone fragments have been addressed. We will discharge the patient to home today with his catheter in place and my office will contact him with next week's procedure. Subjective Subjective Interval history since last seen: Chief complaint: Postoperative day #1 The patient has been relatively comfortable overnight. He has had some bleeding around the catheter and only had some sediment early in his hospital stay. He has had no clot retention or larger debris from the catheter. Exam Narrative Exam Narrative: He looks well His vital signs are documented elsewhere He is awake and alert His bladder irrigant is crystal-clear Objective Last Vital Signs Temp 37.0 C 10/09/24 07:06 Pulse 61 10/09/24 07:06 Resp 17 10/09/24 07:06 BP 106/61 10/09/24 07:06 Pulse Ox 98 10/09/24 07:06 Time Spent with Patient Time Spent with Patient: <25 minutes Time was spent: preparing to see the patient(eg.review tests), obtaining and/or reviewing separately otained hiistory, referring, communicating with other health intensive care unit nurse, counseling the patient and care coordination
--- NOTE | 2024-10-09 09:04 | PDOC.CMDIS ---
Date of service: 10/09/24 Time of Service: 09:04 LACE Index Scoring Tool Questions: Length of Stay (in days): 1 Was the patient admitted via the E.D.?: No E.D. 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 He was discharged home via private vehicle with family with a plan to follow up with Urology (Dr. Gaona) as an outpatient. Due to his age pt is no longer eligible to follow up post discharge with Pediatrics and a hospital follow up will be made using the t-doc schedule. Patient/Family Education Needs: Review discharge instructions and plan to follow up as an outpatient. Discuss ask me three.
== END 2024-10-09 10:25 | disposition home or self-care (01) ==
LOC: PDS 16:18 → MS 16:18
PROVIDERS: Admitting Provider Urology; PCP Pediatrics; Visit Provider Urology
PROC: 0TJB8ZZ Inspection of Bladder, Via Natural or Artificial Opening Endoscopic (ICD-10-PCS; CPT 52318; principal; 2024-10-08 09:45)
DX: N21.0 Calculus in bladder (principal); R31.0 Gross hematuria; R33.9 Retention of urine, unspecified
CPT/HCPCS: 52318; 96365; 96366; 82365; G0378; J0131; J0690; J1100; J1885; J2003; J2250; J2371; J2405; J2704; J3010; J3475

== ENCOUNTER 2024-10-12 17:14 | Emergency (ER) | payer MEDICAID, SELFPAY ==
[2024-10-12 17:17] VITALS: BP 134/75; PULSE 77; RESP 20; TEMP 36.5; O2SAT 98
[2024-10-12 17:57] VITALS: BP 134/75; PULSE 77; RESP 20; TEMP 36.5; O2SAT 98
[2024-10-12 18:04] LABS: Bilirubin Negative (Negative); Blood Large (Negative); Clarity Clear (Clear); Glucose Negative (Negative); Ketones Negative (Negative); Leukocyte Esterase Small (Negative); Nitrite Negative (Negative); pH 8.5 (5-8)
[2024-10-12 18:14] LABS: Bacteria Moderate HPF (Negative); C & S Indicated? C&S Done As Ordered; Casts Negative LPF (Negative); Crystals Negative HPF (Negative); Epithelial Cells Rare HPF (Negative); Mucus Trace (Negative); RBC >50 HPF (0-2)
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
== END 2024-10-12 18:42 | disposition home or self-care (01) ==
PROVIDERS: Emergency Provider Student in an Organized Health Care Education/Training Program
DX: N39.0 Urinary tract infection, site not specified (principal); T83.9XXA Unspecified complication of genitourinary prosthetic device, implant and graft, initial encounter
CPT/HCPCS: 99283 ×2; 81003; 81015; 87086

== ENCOUNTER 2024-10-15 09:07 | Day surgery (SDC) | payer MEDICAID, SELFPAY ==
--- NOTE | 2024-10-10 12:07 | W.PM.OP ---
Operative Note Operative Note PRE-OP DIAGNOSIS: Acute appendicitis POST-OP DIAGNOSIS: same PROCEDURE: Laparoscopic appendectomy SURGEON: Al Rome INVENTORY CHECKER: Chelle Luna ANESTHESIA TYPE: General LMA/ETT Refer to Anesthesia Record ESTIMATED BLOOD LOSS: 30 PATHOLOGY: other (Appendix (permanent pathology); peritoneal fluid (microbiology).) COMPLICATIONS: None Patient was transported to: PACU Patient's condition: stable Implants: Not applicable Indications: Acute appendicitis Findings: Acute nonperforated suppurative appendicitis, appendix removed uneventfully. Peritoneal fluid cultures sent for microbiology. Procedure Description: Patient was taken to the operating room. She underwent general anesthesia. A Castillo catheter was placed. The arms were tucked. The abdomen was prepped and draped. A timeout was completed. A Veress needle entry was attempted on the left mid abdomen lateral to the rectus sheath, and slightly inferior to the umbilicus. Appropriate insufflation pressures could not be obtained. A Veress needle entry was performed at Quinones's point at the left upper quadrant, and the abdomen was insufflated to 14 cc of water. The 5 mm trocar was inserted at this position, and the abdomen was surveyed. The small and large bowel viscera were nicely decompressed. A 10 mm port was placed in the periumbilical position, a 5 mm port was placed in the left mid abdomen lateral to the rectus sheath and slightly inferior to the umbilicus, a 5 mm port was placed in the suprapubic region. The patient's bed was airplane to the left, she was put in a steep Trendelenburg position. The appendix was adherent to the right pelvic sidewall along the fimbria and fallopian tube. The mesentery of the terminal ileum was adherent as well. This was gently dissected away, and the appendix was elevated. The appendix was suppurative, with some early gangrenous changes, there was some surrounding suppurative fluid within the pelvis which was irrigated and suction, and sent for culture. The mesoappendix was taken close to the appendix using the LigaSure device, the appendix was then exposed at its base at the cecum. The appendix at its base at the cecum was doubly encircled with Vicryl Endoloop, a third Endoloop was placed about a centimeter distal and the appendix was transected. Site of dissection was irrigated and suctioned until the fluid became clear. Patient was placed in a steep Trendelenburg position, and the rectovaginal pouch of Ranjan was inspected, there was some turbid a purulent fluid here that was suctioned, the space was irrigated until the fluid became clear as well. The site of dissection in the right lower quadrant was examined, this was hemostatic, the ties were appropriately placed occluding the appendiceal stump. The patient was returned to the neutral position. A generous tongue of omentum was placed over the appendiceal stump as well as the transected mesoappendix. The appendix was placed in an endoscopic retrieval pouch it was removed from the abdomen. The 10 mm port site near the umbilicus was closed with interrupted #1 Vicryl suture placed using a suture passer. Gas was allowed to desufflate from the abdomen, all incision sites were closed with 3-0 Monocryl. Sterile dressings were applied. Sponge and needle counts were correct at the termination of the procedure. Patient has tolerated the procedure well, she was transition to the recovery unit, she remains in stable condition. Date of Procedure: 10/10/24
[2024-10-15 09:28] VITALS: BP 134/80; PULSE 96; RESP 16; TEMP 36.8; O2SAT 98
[2024-10-15] MEDS: Lactated Ringers 1,000 ML 80 ML IV (10:00)
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
--- NOTE | 2024-10-15 10:45 | W.ANESPRE ---
General Info Date of Service Date Performed: 10/15/24 Height: 5 ft 11 in Weight: 53.9 kg Body Mass Index (BMI): 16.5 Surgical Procedure: Operation Date: 10/15/24 09:40 Proposed Procedure Side Surgeon p Cystoscopy w/Evacuation of Bladder Stone Fragments Petr Gaona MD Meds Allergies and Home Medications Allergies Allergy/AdvReac Type Severity Reaction Status Date / Time No Known Allergies Allergy Verified 10/15/24 09:20 Home Medication ?Medication ?Instructions ?Recorded acetaminophen 500 mg oral powder 500 mg PO Q6H PRN 11/01/22 packet (Tylenol Extra Strength) gabapentin 300 mg capsule 300 mg PO TID PRN 11/01/22 ondansetron 4 mg disintegrating 4 mg PO Q8H PRN nausea and 08/04/24 tablet vomiting #8 tabs cephalexin 500 mg capsule 500 mg PO QID 7 days #28 caps 10/12/24 Current Visit Medications: Current Medications Generic Name Dose Route Start Last Admin Trade Name Freq PRN Reason Stop Dose Admin Ringer's Solution 1,000 mls @ 80 mls/hr 10/15/24 06:00 10/15/24 10:00 IV 10/15/24 23:59 80 mls/hr INFUSION SARA Administration Cefazolin Sodium/Dextrose 2 gm in 50 mls @ 100 mls/hr 10/15/24 06:00 Ancef Duplex IVPB 10/15/24 23:59 PREOP SARA IV Miscellaneous Supplies 1 each 10/15/24 06:00 Iv Access IV 10/15/24 23:59 DIRECTED SARA Sodium Chloride 0 ml 10/15/24 06:00 Normal Saline Flush 10 Ml Syr IV 10/15/24 23:59 PRN PRN Sodium Chloride 0 ml 10/15/24 06:00 Normal Saline 10 Ml Vial IJ 10/15/24 23:59 DIRECTED PRN Sterile Water 0 ml 10/15/24 06:00 Water,Injection,Sterile 10 Ml Vial IJ 10/15/24 23:59 DIRECTED PRN PFSH Active Problems Active Problems: Problem Status Onset Code Acute UTI Acute N39.0 Castillo catheter problem Acute T83.9XXA Hematuria Acute R31.9 Bladder calculi Acute N21.0 Urinary retention Acute R33.9 Traumatic burst fracture of lumbar vertebra Acute S32.001A Fracture of left tibia and fibula Acute S82.202A, S82.402A Acetabulum fracture, right Acute S32.401A Sacral fracture, closed Acute S32.10XA Open fracture of second metacarpal bone of right hand Acute S62.300B Fracture of base of third metacarpal bone of right hand Acute S62.312A Open fracture of right radius and ulna Acute S52.91XB, S52.201B Jaundice Acute R17 Routine child health exam Acute 11/07/11 Z00.129 Pes planus of both feet Acute 10/21/15 M21.41, M21.42 Medical History Medical History Constipation Pes planus Tonsillar and adenoid hypertrophy Serous otitis media Surgical History Surgical History (Updated 10/15/24 @ 09:31 by Malika Osorio) Hx of cystoscopy Hx of decompressive lumbar laminectomy H/O exploratory laparotomy Tonsillectomy and adenoidectomy Myringotomy w/ PE (pressure equalizing) tubes times 2 Circumcision Tobacco Smoking/Tobacco Use Status: Current every day Tobacco Type: e-cigarettes Passive smoking exposure: Yes Alcohol Alcohol Intake: former Substance Use Substance use: Daily Substance use type: marijuana Vital Signs and Lab Results Vital Signs Most Recent Vital Signs in EMR: Most Recent Vital Signs Temp Pulse Resp BP Pulse Ox 36.8 C 96 H 16 134/80 98 10/15/24 09:28 10/15/24 09:28 10/15/24 09:28 10/15/24 09:28 10/15/24 09:28 Imaging and Studies Imaging and Studies Study information below may be from another EMR and interpreted by another provider. Please see original notes in EMR for more complete details. EKG Summary: EKG PATIENT NAME: Pablo Yost UNIT #: [id number] ORDERING PROVIDER: Ap Morgan M.D. PRIMARY CARE PROVIDER: REJI DDOSON MD DATE/TIME OF SERVICE: 09/24/221800 : 2000 PERFORMING LOCATION: ER APPROVED REPORT Exam: Resting ECG Reason for Exam: Hypokalemia Patient Location: E HR:95 bpm ECG Measurements Heart Rate 95 AXIS NH 125 P 77 QRSd 97 QRS -74 QT 333 T59 QTc 419 Conclusion Sinus rhythm...normal P axis, V-rate 60- 99 Probable left atrial enlargement...P >50mS, <-0.10mV V1 Left anterior fascicular block...axis(240,-40), init forces inf ST elev, probable normal early repol pattern...ST elevation, age<55 Narrow complex normal sinus rhythm at a rate of 95. Intervals within normal limits. Left axis deviation no signs of LVH based on voltage criteria in aVL. No acute ST segment abnormalities. T wave flattening in aVL. No prior for comparison. Anesthesia Assessment and Plan Anesthesia History Personal History: No History of Anesthesia Complications Family History: No Family History of Anesthesia Complications Exercise Tolerance Exercise Tolerance: Metabolic Equivalents>4 Pertinent Negatives Pertinent Negatives: No Symptoms of GERD, No Major Cardiovascular Symptoms or Complaints and No Major Pulmonary Symptoms or Complaints Cardiac & Pulmonary Exam Cardiac Exam: Normal S1/S2 Heart Sounds Pulmonary Exam: Clear Bilateral Breath Sounds Implantable Cardiac Device Does patient have a Pacemaker or an ICD?: No Airway Exam Known Difficult Airway: No Mallampati Class: 2 Mouth Opening: Normal (> 3cm) Thyromental Distance: Greater than 3 cm Neck Range of Motion: Full ROM Neck Circumference: Normal Teeth Condition: Generalized Poor Dentition and Loose or Chipped ASA Classification ASA Score: ASA 2 Emergency Case?: No NPO Status NPO Status: NPO Clears >2 hours, Solids >8 hours Anesthesia Plan Resuscitation Status: Full Code Anesthesia Technique: General Anesthesia Airway Planned: Natural Airway Monitors Used: Standard Monitors
[2024-10-15 10:49] VITALS: BMI 16.5
[2024-10-15] MEDS: ceFAZolin 2 GM/50 ML BAG IVPB (11:19)
[2024-10-15] MEDS: ACETAMINOPHEN 500 MG/50 ML BAG 50 MG (11:28)
[2024-10-15] MEDS: Lidocaine 2% Jelly 11 ML SYR (11:35)
[2024-10-15 11:55] VITALS: BP 100/53; PULSE 68; RESP 16; TEMP 36.4; O2SAT 99
--- NOTE | 2024-10-15 11:55 | W.PM.DSUDISC ---
Date of service: 10/15/24 Discharge Plan Disposition Patient Disposition: Home Discharge Details Attending Provider: Petr Gaona Primary Care Provider: Patricia Rivera Home Meds and New Rx's Prescriptions: Discontinued cephalexin 500 mg capsule 500 mg PO QID 7 Days Qty: 28 0RF No Action Tylenol Extra Strength 500 mg powder in packet 500 mg PO Q6H PRN gabapentin 300 mg capsule 300 mg PO TID PRN Patient Comments: not taking regularly, taking as needed for nerve pain. ondansetron 4 mg tablet,disintegrating 4 mg PO Q8H PRN (Reason: nausea and vomiting) Qty: 8 0RF Discharge Instructions Additional Instructions: Follow-up in 2 to 4 weeks to review the stone composition Stand Alone Forms: Anesthesia Discharge Inst., [facility] Sofi Griggs ([facility]) Activity:: Activity as Tolerated Shower/Bathe:: 24 hours Diet:: As Tolerated Discharge Orders Discharge Orders: Discharge Order (Routine); Ordered 10/15/24 Ordered By: Petr Gaona DS: Diagnosis Discharge Diagnosis (1) Bladder calculi: Status: Acute
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
--- NOTE | 2024-10-15 12:20 | W.ANESPOSTOP ---
Postoperative Evaluation Date, Time and Location Date Performed: 10/15/24 Time Performed: 12:21 Patient Location: Day Surgery Unit Vital Signs Most Recent Imported Vital Signs: Most Recent Vital Signs Temp Pulse Resp BP Pulse Ox 36.4 C L 68 16 100/53 L 99 10/15/24 11:55 10/15/24 11:55 10/15/24 11:55 10/15/24 11:55 10/15/24 11:55 Pain Score Most Recent Pain Score: Most Recent Pain Score Pain Level 0 10/15/24 11:55 Assessment Mental Status: Awake (Alert & Oriented to Patient Baseline) Airway and Respiratory Function: Patent airway with normal (patient baseline) respiratory exam Cardiovascular Function: Hemodynamically Stable Hydration Status: Adequately Hydrated Nausea & Vomiting: No Nausea or Vomiting Pain: Pt. Denies Any Pain Peripheral Nerve Block: Patient did not receive a nerve block
[2024-10-15 12:34] VITALS: BP 110/67; PULSE 61; RESP 16; TEMP 36.4; O2SAT 100
[2024-10-15] MEDS: Phenazopyridine 200 MG TAB PO (12:37)
== END 2024-10-15 13:31 | disposition home or self-care (01) ==
PROVIDERS: PCP Family Medicine; Visit Provider Urology
PROC: 0TJB8ZZ Inspection of Bladder, Via Natural or Artificial Opening Endoscopic (ICD-10-PCS; CPT 52000; principal; 2024-10-15 09:30)
DX: N21.0 Calculus in bladder (principal)
CPT/HCPCS: 52310; J0131; J0690

== ENCOUNTER 2025-04-21 14:53 | Outpatient (REF) | payer MEDICAID, SELFPAY | END 2025-04-21 14:54 | disposition home or self-care (01) | LOC: LBN 14:53 | PROVIDERS: PCP Family Medicine; Visit Provider Physician Assistant | DX: J02.9 Acute pharyngitis, unspecified (principal) | CPT/HCPCS: 87077; 87070 ==